=== PATIENT | female | born 1985 | race Caucasian/White ===

== ENCOUNTER 2016-12-30 07:50 | Emergency (ER) | payer OTHER ==
[~2016-12-30] VITALS: Ht 165.1 cm; Wt 60.0 kg
[2016-12-30 07:52] VITALS: BP 129/83; PULSE 73; RESP 18; TEMP 98.2; O2SAT 95
[2016-12-30 07:56] VITALS: BP 129/83; PULSE 72; RESP 18; O2SAT 97
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
[2016-12-30] MEDS ORDERED: oxyCODONE/ACETAMINOPHEN 5 MG/325 MG TAB PO ONE (08:15)
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
[2016-12-30] MEDS ORDERED: ONDANSETRON ODT 4 MG TAB PO ONE (08:45)
[2016-12-30] MEDS ORDERED: CYCL1TAB29 PO (09:33)
[2016-12-30] MEDS ORDERED: IBUP-232 PO (09:33)
[2016-12-30 10:38] VITALS: BP 148/83; TEMP 98.2
== END 2016-12-30 10:40 | disposition home or self-care (01) ==
LOC: NEPC 07:50
DX: S09.90XA Unspecified injury of head, initial encounter (principal); F17.210 Nicotine dependence, cigarettes, uncomplicated; V43.52XA Car driver injured in collision with other type car in traffic accident, initial encounter; Y92.410 Unspecified street and highway as the place of occurrence of the external cause
CPT/HCPCS: 70450; 70486; 72125